=== PATIENT | male | born 1960 | race Caucasian/White ===

== ENCOUNTER → 2023-02-21 | Outpatient (CLI) | payer OTHER, SELFPAY ==
[2023-02-21 17:24] LABS: Absolute Lymphocyte Count 3.83 X10^3/uL (0.83-4.51); Absolute Neutrophil Count 3.5 X10^3/uL (2.0-7.7); Basophil# 0.07 X10^3/uL; Basophil% 0.8 % (0-1); Eosinophil# 0.23 X10^3/uL; Eosinophils% 2.8 % (0-5); Hematocrit 46.1 % (40-54); Hemoglobin 15.8 g/dL (13.0-16.5); Lymphocyte # 3.83 X10^3/ul (0.83-4.51); Lymphocyte % 46.1 % (19-41); Mean Corp Hgb Conc 34.3 g/dL (32-36); Mean Corpuscular Hgb 32.7 pg (27.0-32.0); Mean Corpuscular Volume 95.4 fL (80-94); Mean Platelet Vol. 9.6 fl (6.2-12.0); Monocyte# 0.68 X10^3/uL; Monocyte% 8.2 % (0-10); NRBC Flagged by Analyzer 0 % (0-5); Neutrophil # 3.48 X10^3/uL (2.7-7.7); Neutrophil % 41.9 % (47-70); Platelet Count 216 K/mm3 (150-450); RBC Distribution Width CV 13.4 % (11.6-14.6); Red Blood Count 4.83 M/mm3 (4.6-6.2); White Blood Count 8.3 K/mm3 (4.4-11.0)
[2023-02-21 17:55] LABS: AST(SGOT) 31 U/L (15-37); Alanine Aminotransfer ALT/SGPT 37 U/L (16-61); Albumin, Serum 3.5 g/dL (3.2-5.0); Alkaline Phosphatase 82 U/L (45-117); Anion Gap 4 (5-15); BUN 16 mg/dL (7-18); BUN/Creat Ratio 15.7 RATIO (10-20); Calcium,Total 9.1 mg/dL (8.5-10.1); Chloride 114 mmol/L (98-107); Cholesterol 182 mg/dL (200); Creatinine, Serum 1.02 mg/dL (0.70-1.30); EST Glomerular Filtration Rate 78 mL/min (>60); Est Glom Filt Rate - Afr Amer 94 mL/min (>60); Globulin 3.5 g/dL (2.2-4.2); Glucose 93 mg/dL (74-106); High Density Lipoprotein 65 mg/dL; PSA,Total - Annual Screen 0.82 ng/mL (0.00-4.00); Sodium Level 140 mmol/L (136-145); Triglycerides 71 mg/dL; Uric Acid 8.1 mg/dL (3.5-7.2); Very Low Density Lipoprotein 14 mg/dL (5-40)
== END | disposition home or self-care (01) ==
PROVIDERS: PCP Nurse Practitioner Family; Referring Provider Nurse Practitioner Family; Visit Provider Nurse Practitioner Family
DX: Z00.00 Encounter for general adult medical examination without abnormal findings (principal); I10 Essential (primary) hypertension; Z12.5 Encounter for screening for malignant neoplasm of prostate; M10.9 Gout, unspecified
CPT/HCPCS: 36415; 80053; 80061; 84153; 84550; 85025; G0103

== ENCOUNTER → 2023-03-07 | Outpatient (CLI) | payer OTHER, SELFPAY ==
--- NOTE | 2023-03-07 16:45 | CT_ITS ---
EXAM: CT CHEST, LUNG CANCER SCREENING WITHOUT INTRAVENOUS CONTRAST CLINICAL INDICATION: Lung cancer screening -- and gt;20 pk yr hx;current smoker; asymptomatic TECHNIQUE: Helically acquired images were obtained of the chest without intravenous contrast using low dose (LDCT) lung cancer screening protocol. This CT exam was performed using one or more of the following dose reduction techniques: automated exposure control, adjustment of the mA and/or kV according to patient size, and/or use of iterative reconstruction technique. COMPARISON: No relevant prior studies available. FINDINGS: LUNGS AND PLEURAL SPACES: There is a 4 mm noncalcified nodule in the left lung base seen on series 2 image 190. No pleural effusion or thickening. No pneumothorax. HEART: There are mild coronary artery calcifications. Heart size is normal. No pericardial effusion. MEDIASTINUM: Unremarkable. No mediastinal or hilar adenopathy. Esophagus is unremarkable. No hiatal hernia. THYROID: Unremarkable. No thyroid lesions. BONES/JOINTS: Unremarkable. No suspicious lytic or blastic abnormality. VASCULATURE: See above. LYMPH NODES: Unremarkable. No enlarged lymph nodes. CT/Low Dose CT Lung Screening IMPRESSION: 4 mm noncalcified nodule at the left lung base. There is no acute pulmonary abnormality. Lung-RADS score: 3 - Probably Benign. Recommend low-dose CT (LDCT) in 6 months. Electronically Signed: Mauro Dorantes MD at 18:34 [facility] ,
== END | disposition home or self-care (01) ==
LOC: CT 16:45
PROVIDERS: PCP Nurse Practitioner Family; Referring Provider Nurse Practitioner Family; Visit Provider Nurse Practitioner Family
DX: Z12.2 Encounter for screening for malignant neoplasm of respiratory organs (principal); Z87.891 Personal history of nicotine dependence
CPT/HCPCS: 71271

== ENCOUNTER → 2023-09-26 | Outpatient (CLI) | payer OTHER, SELFPAY ==
--- NOTE | 2023-09-26 16:56 | CT_ITS ---
STUDY: LOW DOSE CT LUNG CANCER SCREENING REASON FOR EXAM: Male, 63 years old. LLL nodule; lung cancer screening -- and gt;20 pk yr hx; current smoker;asymptomatic RADIATION DOSAGE (If Supplied By Facility): CTDIvol = ( 3.02 ) mGy, DLP = ( 98.55 ) mGycm TECHNIQUE: No contrast was administered. Low dose technique was utilized (average mAS-38 and kVp 120). 1.25 mm axial source images with a slice interval of 1.25-mm were reconstructed in lung windows. 2.5 mm axial source images with a slice interval of 2.5-mm were reconstructed in lung windows. 5.0 mm axial source images with a slice interval of 5.0-mm were reconstructed in soft tissue windows. Nodule measured using lung windows on PACS and/or independent workstation with automated measurement of minimum and maximum diameter. Nodule measurement reported as average diameter rounded to the nearest whole number. Growth is defined as an increase ins size of greater than 1.5 mm. COMPARISON: CT lung cancer screening study dated March 07, 2023 FINDINGS: Total lung nodules (excluding granulomas): Stable 4.8 mm nodule measured at its greatest diameter in the lateral base of the left lower lobe, see image 159/236 series 2. This is unchanged from the prior study when measuring the nodule in the same position. No additional nodules are present. No visualized masses or spiculated lesions. Emphysema: Not present Endobronchial lesion: None Aorta: No aneurysmal dilatation Redemonstration of mild diffuse interstitial fibrotic changes of the lungs. No pneumonic consolidation or pleural effusion is present. There is no demonstrated pleural abnormality. Normal heart and pericardium. There are calcifications of the coronary arteries. Normal mediastinum. Normal hilar regions. Normal unenhanced pulmonary arteries. There is atherosclerotic calcification of the aortic arch with tortuosity and elongation of the aortic arch and descending thoracic aorta. There are multi-level degenerative changes of the thoracic spine. There is no demonstrated abnormality of the visualized upper abdomen. CT/Low Dose CT Lung Screening IMPRESSION: 1. Stable 4.8 mm nodule measured at its greatest diameter in the lateral base of the left lower lobe, see image 159/236 series 2. This is unchanged from the prior study when measuring the nodule in the same position. No additional nodules are present. No visualized masses or spiculated lesions. 2. Category 3 nodules that are stable or decreased at 6 months 3. Follow-up to one year to ensure stability. IMPORTANT NOTES FOR USE: ACR Lung-RADS Version 1.0 Assessment Categories Release Date: 2021 Classification system Category 0 (Incomplete)- prior CT studies were performed but are not available, lungs incompletely imaged, findings suggest inflammation or infection Category 1 (negative, <1% chance of malignancy) (no lung nodules/lung nodule(s) with specific findings favoring benign nodule(s)) Category 2 (benign appearance or behavior, <1% chance of malignancy) juxtapleural nodule <10mm mean diameter at baseline OR new and smooth, solid, oval, lentiform, or triangular Category 3 nodules that are stable or decreased at 6 months Category 3 (probably benign, 1-2% chance of malignancy) solid nodule(s)(between 6 and 8 mm at baseline; new nodule between 4 mm and 6 mm) Category 4A lesion, stable or decreased in size at 3-month follow-up (excluding airway nodules) Category 4A (suspicious, 5-15% chance of malignancy) (version 1.1 change previously suspicious) solid nodule(s) (?8 mm to <15 mm at baseline or growing nodule(s) <8 mm) Category 4B (very suspicious, >15% chance of malignancy) stable or growing airway nodule, segmental or more proximal (solid nodule(s) ? 15 mm at baseline or new or growing, and ?8 mm) Category 4X (very suspicious, >15% chance of malignancy) category 3 or 4 nodules with additional features or imaging findings that increase the suspicion of malignancy Modified categories [X]S (e.g. 3S) if there is a clinically significant or potentially significant non-lung cancer finding Electronically Signed: Carlos Nicole MD at 19:13 EDT Reading Location ID and State: [facility] / [place] , Service support ,
== END | disposition home or self-care (01) ==
LOC: CT 16:54
PROVIDERS: PCP Nurse Practitioner Family; Referring Provider Nurse Practitioner Family; Visit Provider Nurse Practitioner Family
DX: Z87.891 Personal history of nicotine dependence (principal); R91.1 Solitary pulmonary nodule; Z12.2 Encounter for screening for malignant neoplasm of respiratory organs
CPT/HCPCS: 71271

== ENCOUNTER → 2024-09-10 | Outpatient (CLI) | payer MEDICARE, SELFPAY ==
--- NOTE | 2024-09-10 11:00 | RAD_ITS ---
PROCEDURE: CHEST PA AND LATERAL 09/10/2024 REASON FOR EXAM: WHEEZING TECHNIQUE: CHEST PA AND LATERAL COMPARISON: [facility] from the chest CT of 09/26/2023. RAD/Chest PA and Lateral IMPRESSION: Lungs appear clear. No pleural effusion or pneumothorax is noted. The cardiomediastinal silhouette is within the normal range. Mild thoracic spine degenerative changes are seen. No acute osseous change is evident. No evidence of acute cardiopulmonary disease. Reading Location: [place] [id number]
[2024-09-10 12:39] LABS: Hematocrit 38.3 % (40-54); Hemoglobin 13.6 g/dL (13.0-16.5); Immature Granulocytes Count 0.030 X10^3/uL (0.0-0.0); Mean Corp Hgb Conc 35.5 g/dL (32-36); Mean Corpuscular Volume 93.0 fL (80-94); Mean Platelet Vol. 8.6 fl (6.2-12.0); NRBC Flagged by Analyzer 0 % (0-5); Platelet Count 256 K/mm3 (150-450); RBC Distribution Width CV 13.1 % (11.6-14.6); RBC Distribution Width SD 44.5 fl (35.1-43.9); Red Blood Count 4.12 M/mm3 (4.6-6.2); White Blood Count 9.2 K/mm3 (4.4-11.0)
[2024-09-10 13:11] LABS: AST(SGOT) 28 U/L (<=37); Alanine Aminotransfer ALT/SGPT 25 U/L (<=46); Albumin, Serum 4.2 g/dL (3.4-4.8); Alkaline Phosphatase 70 U/L (40-129); Anion Gap 12 (5-15); BUN 13 mg/dL (4-19); BUN/Creat Ratio 14.6 RATIO (10-20); CRP 4.51 mg/L (0.0-3.0); Calcium,Total 9.1 mg/dL (7.6-11.0); Carbon Dioxide 21.0 mmol/L (21.0-32.0); Chloride 96 mmol/L (98-108); Cholesterol 140 mg/dL (<=200); Globulin 2.5 g/dL (2.2-4.2); Glucose 134 mg/dL (70-99); Low Density Lipoprotein Calc. 53 mg/dL; PSA,Total - Annual Screen 0.71 ng/mL (0.02-4.00); Potassium 4.2 mmol/L (3.3-5.1); Pro- Brain NATRIURETIC PEPTIDE 348 pg/mL (<=900); Triglycerides 112 mg/dL; Very Low Density Lipoprotein 22 mg/dL (5-40); cholesterol:hdl ratio screen 2.18
--- OUTSIDE RECORDS SUMMARY | 2024-09-10 17:56 | XMS RPT_ITS | CCD ---
Author Organization [facility] Care Team Providers Care Financial Coordinator Name Role Phone Deshawn, Justine Primary Care Unavailable Feliciano Santacruz Attending Unavailable Deshawn, Justine Referring Unavailable Bimal POKER ROOM MANAGER, Margy Referring Unavailable Deshawn, Justine Primary Care Unavailable Bimal POKER ROOM MANAGER, Margy Attending Unavailable Bimal POKER ROOM MANAGER, Margy Referring Unavailable Deshawn, Justine Primary Care Unavailable Bimal POKER ROOM MANAGER, Margy Attending Unavailable Deshawn, Justine Primary Care Unavailable Deshawn, Justine Attending Unavailable Deshawn, Justine Referring Unavailable Feliciano Santacruz Attending Unavailable Deshawn, Justine Primary Care Unavailable Deshawn, Justine Primary Care Unavailable Bimal POKER ROOM MANAGER, Margy Referring Unavailable Bimal POKER ROOM MANAGER, Margy Attending Unavailable Bimal POKER ROOM MANAGER, Margy Attending Unavailable Deshawn, Justine Primary Care Unavailable Bimal POKER ROOM MANAGER, Margy Referring Unavailable Medications Current Medications Medication Drug Class(es) Dates Sig (Normalized) Sig (Original) Kettering (Nk) (1 source) Start: 08-07-2019 Ket[place] (Nk) A ctive August 06, 2019 11:00pm Completed/Discontinued Medications Medication Drug Class(es) Dates Sig (Normalized) Sig (Original) acetaminophen 325 mg / oxyCODONE hydrochloride 5 mg oral tablet (1 source) Opioid Agonist Start: 08-24-2013 End: 07-17-2019 take 1 tablet by mouth every four hours as needed Oxycodone-Acetamino phen Discontinued 1 - 2 TABLET PO EVERY 4 HOURS NEEDED August 23, 2013 11:00pm July 17, 2019 7:20am predniSONE 10 mg oral tablet (2 sources) Start: 07-24-2019 End: 08-07-2019 take 4 tablets by mouth once daily, then take 3 tablets by mouth once daily, then take 2 tablets by mouth once daily, then take 1 tablet by mouth once daily Prednisone Discontinued 10 MG PO DAILY July 23, 2019 11:00pm August 07, 2019 6:25am 4 tablets daily for 3 days, then 3 tablets daily for 3 days, then 2 tablets daily for 3 days, then 1 tablet daily for 3 days Start: 07-17-2019 End: 08-07-2019 take 1 tablet by mouth once daily prednisone 50 mg tablet Discontinued 50 MG PO DAILY July 16, 2019 11:00pm August 07, 2019 6:25am Problems Active Problems Problem Classification Problem Date Documented Da te Episodic/Chronic Allergic reactions (1 source) Irritant contact dermatitis due to solvent; Translations: [Irritant contact dermatitis due to solvents] 07-17-2019 Episodic Other lower respiratory disease (1 source) Solitary pulmonary nodule; Translations: [Solitary pulmonary nodule] Onset: 10-03-2023 Episodic Other screening for suspected conditions (not mental disorders or infectious disease) (1 source) Encounter for screening for malignant neoplasm of respiratory organs; Translations: [Encounter for screening for malignant neoplasm of respiratory organs] Onset: 10-03-2023 Episodic Screening and history of mental health and substance abuse codes (1 source) Personal history of nicotine dependence; Translations: [Personal history of nicotine dependence] Onset: 11-09-2023 Episodic Substance-related disorders (1 source) Nicotine dependence, unspecified, with unspecified nicotine-induced disorders; Translations: [Nicotine dependence, unspecified, with unspecified nicotine-induced disorders] Onset: 10-03-2023 Chronic Past or Other Problems Problem Classification Problem Date Documented Da te Episodic/Chronic Other gastrointestinal disorders (1 source) Other fecal abnormalities; Translations: [Other fecal abnormalities] Onset: 04-05-2023 Episodic Results Test Name Value Interpretation Reference Range Facility Low Dose CT Lung Screeningon 09-26-[address] Lung Screening [facility] Imaging Services [address] [place] [id number] Lung Screening MR#: [id number] Acct: [id number] Name: TI MOTLEY Rep #: [id number] : 1960 M 63 From: Carlos smith MD PCP: ELENITA Viera Status: [facility] CLI Study: Low Dose CT Lung Screening Date of Exam: 09/25 Exam# [id number] Ordering Dr: Margy Wallis NP POKER ROOM MANAGER -C [id number] STUDY: LOW DOSE CT LUNG CANCER SCREENING REASON FOR EXAM: Male, 63 years old. LLL nodule; lung cancer screening -- and gt;20 pk yr hx; current smoker;asymptomatic RADIATION DOSAGE (If Supplied By Facility): CTDIvol = ( 3.02 ) mGy, DLP = ( 98.55 ) mGycm TECHNIQUE: No contrast was administered. Low dose technique was utilized (average mAS-38 and kVp 120). 1.25 mm axial source images with a slice interval of 1.25-mm were reconstructed in lung windows. 2.5 mm axial source images with a slice interval of 2.5-mm were reconstructed in lung windows. 5.0 mm axial source images with a slice interval of 5.0-mm were reconstructed in soft tissue windows. Nodule measured using lung windows on PACS and/or independent workstation with automated measurement of minimum and maximum diameter. Nodule measurement reported as average diameter rounded to the nearest whole number. Growth is defined as an increase ins size of greater than 1.5 mm. COMPARISON: CT lung cancer screening study dated March 07, 2023 FINDINGS: Total lung nodules (excluding granulomas): Stable 4.8 mm nodule measured at its greatest diameter in the lateral base of the left lower lobe, see image 159/236 series 2. This is unchanged from the prior study when measuring the nodule in the same position. No additional nodules are present. No visualized masses or spiculated lesions. Emphysema: Not present Endobronchial lesion: None Aorta: No aneurysmal dilatation Redemonstration of mild diffuse interstitial fibrotic changes of the lungs. No pneumonic consolidation or pleural effusion is present. There is no demonstrated pleural abnormality. Normal heart and pericardium. There are calcifications of the coronary arteries. Normal mediastinum. Normal hilar regions. Normal unenhanced pulmonary arteries. There is atherosclerotic calcification of the aortic arch with tortuosity and elongation of the aortic arch and descending thoracic aorta. There are multi-level degenerative changes of the thoracic spine. There is no demonstrated abnormality of the visualized upper abdomen. CT/Low Dose CT Lung Screening IMPRESSION: 1. Stable 4.8 mm nodule measured at its greatest diameter in the lateral base of the left lower lobe, see image 159/236 series 2. This is unchanged from the prior study when measuring the nodule in the same position. No additional nodules are present. No visualized masses or spiculated lesions. 2. Category 3 nodules that are stable or decreased at 6 months 3. Follow-up to one year to ensure stability. IMPORTANT NOTES FOR USE: ACR Lung-RADS Version 1.0 Assessment Categories Release Date: 2021 Classification system Category 0 (Incomplete)- prior CT studies were performed but are not available, lungs incompletely imaged, findings suggest inflammation or infection Category 1 (negative, <1% chance of malignancy) (no lung nodules/lung nodule(s) with specific findings favoring benign nodule(s)) Category 2 (benign appearance or behavior, <1% chance of malignancy) juxtapleural nodule <10mm mean diameter at baseline OR new and smooth, solid, oval, lentiform, or triangular Category 3 nodules that are stable or decreased at 6 months Category 3 (probably benign, 1-2% chance of malignancy) solid nodule(s)(between 6 and 8 mm at baseline; new nodule between 4 mm and 6 mm) Category 4A lesion, stable or decreased in size at 3-month follow-up (excluding airway nodules) Category 4A (suspicious, 5-15% chance of malignancy) (version 1.1 change previously suspicious) solid nodule(s) (?8 mm to <15 mm at baseline or growing nodule(s) <8 mm) Category 4B (very suspicious, >15% chance of malignancy) stable or growing airway nodule, segmental or more proximal (solid nodule(s) ? 15 mm at baseline or new or growing, and ?8 mm) Category 4X (very suspicious, >15% chance of malignancy) category 3 or 4 nodules with additional features or imaging findings that increase the suspicion of malignancy Modified categories [X]S (e.g. 3S) if there is a clinically significant or potentially significant non-lung cancer finding Electronically Signed: Carlos Nicole MD at 19:13 EDT , CC (more content not included)... Normal [facility] Oncology Visit Reporton 09-07 Oncology Visit Report [facility] [place] [address] OFFICE VISIT Date of Service: 09/26/23 1624 MR#: [id number] Acct: [id number] Name: TI MOTLEY Rep #: [id number] : 1960 From: Margy Wallis NP POKER ROOM MANAGER -C Age/Sex: 63/M Location: [facility] Status: Signed HPI HPI Reviewed eligibility criteria: 63 year old M with a >20 pk year history (1/2 ppd x 43 years) Smoking Status: Current every day smoker (1/2 ppd) Decision Making Engaged in shared decision making visit utilizing a visual aid. Discussed the risks and benefits of lung cancer screening including the total radiation exposure, false positive rate, over diagnosis and potential need for follow-up diagnostic testing all associated with low-dose chest CT. Comorbidities hypertension ROS Const Denies anorexia, Denies fatigue, Denies headache(s), Denies poor appetite and Denies weight loss ENT Denies headache(s) Card Denies chest pain, Denies dyspnea and Denies palpitations Resp Denies cough, Denies dyspnea, Denies hemoptysis and Denies wheezing GI Reports system reviewed and no additional complaints, except as documented Reports system reviewed and no additional complaints, except as documented Musc Reports system reviewed and no additional complaints, except as documented Skin/Breast Reports system reviewed and no additional complaints, except as documented Neuro Yes system reviewed and no additional complaints, except as documented and No headache(s) Psych Reports system reviewed and no additional complaints, except as documented Endo Reports system reviewed and no additional complaints, except as documented, Denies fatigue and Denies palpitations Dimitri/Lymph Reports system reviewed and no additional complaints, except as documented Aller/Immun Denies wheezing Exam Const General: not in acute distress Orientation: oriented x3 HENMT Head: normocephalic and atraumatic Neck Neck: trachea midline, supple and no lymphadenopathy noted Resp Effort Inspection: normal respiratory effort and symmetric chest movement Auscultation: Bilateral: Diminished Lung Sounds Cardio Rate: regular rate Rhythm: regular rhythm Heart Sounds: S1 normal and S2 normal Psych Affect: normal affect Speech and Movement: speech and movement normal Results Results September 26, [address] Lung Screening COMPARISON: CT lung cancer screening study dated March 07, 2023 FINDINGS: Total lung nodules (excluding granulomas): Stable 4.8 mm nodule measured at its greatest diameter in the lateral base of the left lower lobe, see image 159/236 series 2. This is unchanged from the prior study when measuring the nodule in the same position. No additional nodules are present. No visualized masses or spiculated lesions. Emphysema: Not present Endobronchial lesion: None Aorta: No aneurysmal dilatation Redemonstration of mild diffuse interstitial fibrotic changes of the lungs. No pneumonic consolidation or pleural effusion is present. There is no demonstrated pleural abnormality. Normal heart and pericardium. There are calcifications of the coronary arteries. Normal mediastinum. Normal hilar regions. Normal unenhanced pulmonary arteries. There is atherosclerotic calcification of the aortic arch with tortuosity and elongation of the aortic arch and descending thoracic aorta. There are multi-level degenerative changes of the thoracic spine. There is no demonstrated abnormality of the visualized upper abdomen. IMPRESSION: 1. Stable 4.8 mm nodule measured at its greatest diameter in the lateral base of the left lower lobe, see image 159/236 series 2. This is unchanged from the prior study when measuring the nodule in the same position. No additional nodules are present. No visualized masses or spiculated lesions. 2. Category 3 nodules that are stable or decreased at 6 months 3. Follow-up to one year to ensure stability. Intake Vital Signs 04/04/23 14:56 09/26/23 16:31 Height 5 ft 8 in 5 ft 8 in Weight: 179 lb 179 lb 9 oz BMI 27.2 27.3 BP 142/85 H 157/89 H Blood Pressure Location Rt brachial Lt brachial Position Sitting Sitting Respiration 17 18 Pulse 80 80 Pulse Source Monitor Monitor Temp 99.5 F H Temp Source Temporal Pulse Oximetry (%) 97 97 Oxygen Delivery Method room air room air Intake Visit Reasons: Lung Cancer Screening Is patient in pain?: No Allergies No Known Allergies Allergy (Verified 09/26/23 16:27) Medications ???Medication ???Instructions ???Recorded ???Confirmed ???Type allopurinol 100 mg tablet 100 mg PO DAILY 04/04/23 09/26/23 History lisinopril 20 1 tab PO DAILY 04/04/23 09/26/23 History mg-hydrochlorothiazid e 25 mg tablet Have you fallen in the past year?: No PFSH M (more content not included)... Normal [facility] Surgery Visit Reporton 04-04 Surgery Visit Report [facility] [address] [place] [address] OFFICE VISIT Date of Service: 04/04/23 MR#: [id number] Acct: [id number] Name: TI MOTLEY Rep #: [id number] : 1960 Provider: Dr. Feliciano muro MD Age/Sex: 62/M Location: [facility] Status: Signed Intake Vital Signs 03/07/23 16:11 04/04/23 14:56 Height 5 ft 8 in 5 ft 8 in Weight: 183 lb 179 lb BMI 27.8 27.2 BP 167/90 H 142/85 H Blood Pressure Location Lt brachial Rt brachial Position Sitting Sitting Respiration 18 17 Pulse 80 80 Pulse Source Monitor Monitor Temp 98.0 F Temp Source Temporal Pulse Oximetry (%) 98 97 Oxygen Delivery Method room air room air Intake Visit Reasons: POSITIVE COLOGUARD Chief Complaint: positive cologuard Is patient in pain?: No Allergies No Known Allergies Allergy (Verified 04/04/23 14:58) Medications allopurinol 100 mg tablet 100 mg PO DAILY 04/04/23 [History Confirmed 04/04/23] lisinopril 20 mg-hydrochlorothiazid e 25 mg tablet 1 tab PO DAILY 04/04/23 [History Confirmed 04/04/23] PFSH Medical History (Updated 04/04/23 @ 14:54 by Ayah Rossi) Encounter for screening for malignant neoplasm of lung Gout HTN (hypertension) Lung nodule Tobacco use disorder, continuous Surgical History (Updated 04/04/23 @ 14:56 by Ayah Rossi) H/O arthroscopy of left knee Family History Father Cancer lung Diabetes Mother Diabetes Social History Smoking Status: Current every day smoker (1/2 ppd) Tobacco: How many years used: 40 alcohol intake: never HPI HPI HPI: Patient is a 62-year-old male here with positive Cologuard. Patient has never had a colonoscopy in the past. He denies any abdominal pain or blood in stool. He has no family history of colon cancer. ROS General General: No weight change, appetite, fatigue, colon cancer, breast cancer or weakness HEENT HEENT: No difficulty swallowing, eye injury, eye surgery, swollen glands or hoarseness Endo Endocrine: No thyroid disease, diabetes mellitus, thyroid cancer, Hair loss, heat intolerance or cold intolerance Skin Skin: No rash or changing moles Musc Musculoskeletal: Yes gout; No back problems, arthritis, rheumatoid arthritis or joint pain Cardio Cardiovascular: Yes high blood pressure; No murmur, pacemaker, heart disease, atrial fibrillation, heart attack, heart stent, palpitations, shortness of breat with exertion or chest pain Psych Psychiatric: No depression, anxiety or hearing voices Resp Respiratory: No shortness of breath, No sleep apnea, No cough, No COPD, No asthma, No emphysema and No wheezing Gastro Gastrointestinal: No abdominal pain, No nausea or vomiting, No diarrhea, No constipation, No blood in stool, No acid reflux, No hemorrhoids, No ulcers, No gallbladder problem and No black,tarry stools Dimitri Hematologic: No blood thinners, No blood disorders, No bleeding, No anemia and No blood clots Neuro Neurologic: No system reviewed and no additional complaints, except as documented, No as per HPI, No abnormal gait, No abnormal hearing, No abnormal movements, No abnormal speech, No behavioral changes, No burning sensations, No confusion, No convulsions, No disequilibrium, No dizziness, No localized weakness, No frequent falls, No headache(s), No lack of coordination, No loss of vision, No memory loss, No numbness, No other visual disturbances, No radicular pain, No restless legs, No sensory deficit, No syncope, No tingling, No tremor(s), No weakness and No other Exam Const General: cooperative Orientation: alert and oriented x3 HENMT Head: normal to inspection Neck Neck: normal visual inspection and full ROM Chest Chest palpation inspection: normal inspection of the chest Resp Effort Inspection: normal respiratory effort Auscultation: clear to auscultation bilaterally Cardio Rate: regular rate Rhythm: regular rhythm GI Inspection: non-distended Palpation: soft and nontender Skin General: no rashes or lesions noted Neuro General: patient alert and patient oriented x3 Extrem General: full ROM Psych Appearance: grossly normal Mental Status: mental status grossly normal Assessment and Plan Assessment and Plan (1) Positive colorectal cancer screening using Cologuard test: Status: Acute Plan: I explained endoscopy in detail to the patient. I explained the risks including but not limited to stroke or heart attack with anesthesia, perforation of the GI tract, bleeding, infection. I explained that any of these could necessitate further emergency surgery. The patient understands and all questions were answered sufficiently. The patient wishes to proceed with proced (more content not included)... Normal [facility] Low Dose CT Lung Screeningon 03-07-[address] Lung Screening [facility] Imaging Services [address] [place] [address] Lung Screening MR#: [id number] Acct: [id number] Name: TI MOTLEY Rep #: [id number] : 1960 M 62 From: Mauro Dorantes MD PCP: ELENITA Viera Status: [facility] Study: Low Dose CT Lung Screening Date of Exam: 03/07 Exam# [id number] Ordering Dr: Margy Wallis NP POKER ROOM MANAGER -C [id number] EXAM: CT CHEST, LUNG CANCER SCREENING WITHOUT INTRAVENOUS CONTRAST CLINICAL INDICATION: Lung cancer screening -- and gt;20 pk yr hx;current smoker; asymptomatic TECHNIQUE: Helically acquired images were obtained of the chest without intravenous contrast using low dose (LDCT) lung cancer screening protocol. This CT exam was performed using one or more of the following dose reduction techniques: automated exposure control, adjustment of the mA and/or kV according to patient size, and/or use of iterative reconstruction technique. COMPARISON: No relevant prior studies available. FINDINGS: LUNGS AND PLEURAL SPACES: There is a 4 mm noncalcified nodule in the left lung base seen on series 2 image 190. No pleural effusion or thickening. No pneumothorax. HEART: There are mild coronary artery calcifications. Heart size is normal. No pericardial effusion. MEDIASTINUM: Unremarkable. No mediastinal or hilar adenopathy. Esophagus is unremarkable. No hiatal hernia. THYROID: Unremarkable. No thyroid lesions. BONES/JOINTS: Unremarkable. No suspicious lytic or blastic abnormality. VASCULATURE: See above. LYMPH NODES: Unremarkable. No enlarged lymph nodes. CT/Low Dose CT Lung Screening IMPRESSION: 4 mm noncalcified nodule at the left lung base. There is no acute pulmonary abnormality. Lung-RADS score: 3 - Probably Benign. Recommend low-dose CT (LDCT) in 6 months. Electronically Signed: Mauro Dorantes MD at 18:34 EST , CC: ELENITA Hess; ELENITA Wallis Utility Division Project Manager: Signed Normal [facility] Oncology Visit Reporton 02-08 Oncology Visit Report [facility] [address] [place] [address] OFFICE VISIT Date of Service: 03/07/23 1608 MR#: [id number] Acct: [id number] Name: TI MOTLEY Rep #: [id number] : 1960 From: Margy Bhatia Age/Sex: 62/M Location: [facility] [place] Status: Signed [facility] HPI Reviewed eligibility criteria: 62 year old M with a >20 pack year smoking history (1/2 ppd x 42 years) Smoking Status: Current every day smoker (1/2 ppd) Decision Making Engaged in shared decision making visit utilizing a visual aid. Discussed the risks and benefits of lung cancer screening including the total radiation exposure, false positive rate, over diagnosis and potential need for follow-up diagnostic testing all associated with low-dose chest CT. ROS Const Denies anorexia, Denies fatigue, Denies headache(s), Denies poor appetite and Denies weight loss ENT Denies headache(s) Card Denies chest pain, Denies dyspnea and Denies palpitations Resp Denies cough, Denies dyspnea, Denies hemoptysis and Denies wheezing GI Reports system reviewed and no additional complaints, except as documented Reports system reviewed and no additional complaints, except as documented Musc Reports system reviewed and no additional complaints, except as documented Skin/Breast Reports system reviewed and no additional complaints, except as documented Neuro Yes system reviewed and no additional complaints, except as documented and No headache(s) Psych Reports system reviewed and no additional complaints, except as documented Endo Reports system reviewed and no additional complaints, except as documented, Denies fatigue and Denies palpitations Dimitri/Lymph Reports system reviewed and no additional complaints, except as documented Aller/Immun Denies wheezing Exam Const General: not in acute distress Orientation: oriented x3 [facility] Head: normocephalic and atraumatic Neck Neck: trachea midline, supple and no lymphadenopathy noted Resp Effort Inspection: normal respiratory effort and symmetric chest movement Auscultation: Bilateral: Diminished Lung Sounds Cardio Rate: regular rate Rhythm: regular rhythm Heart Sounds: S1 normal and S2 normal Psych Affect: normal affect Speech and Movement: speech and movement normal Results Results 03/07/[address] Lung Screening COMPARISON: No relevant prior studies available. FINDINGS: LUNGS AND PLEURAL SPACES: There is a 4 mm noncalcified nodule in the left lung base seen on series 2 image 190. No pleural effusion or thickening. No pneumothorax. HEART: There are mild coronary artery calcifications. Heart size is normal. No pericardial effusion. MEDIASTINUM: Unremarkable. No mediastinal or hilar adenopathy. Esophagus is unremarkable. No hiatal hernia. THYROID: Unremarkable. No thyroid lesions. BONES/JOINTS: Unremarkable. No suspicious lytic or blastic abnormality. VASCULATURE: See above. LYMPH NODES: Unremarkable. No enlarged lymph nodes. IMPRESSION: 4 mm noncalcified nodule at the left lung base. There is no acute pulmonary abnormality. Lung-RADS score: 3 - Probably Benign. Recommend low-dose CT (LDCT) in 6 months. Intake Vital Signs 07/17/19 08:19 03/07/23 16:11 Height 5 ft 8 in 5 ft 8 in Weight: 183 lb BMI 27.8 BP 167/90 H Blood Pressure Location Lt brachial Position Sitting Respiration 18 Pulse 80 Pulse Source Monitor Temp 98.0 F Temp Source Temporal Pulse Oximetry (%) 98 Oxygen Delivery Method room air Intake Visit Reasons: Lung Cancer Screening Is patient in pain?: No Allergies No Known Allergies Allergy (Verified 03/07/23 16:11) [facility] Medical History (Updated 03/09/23 @ 10:09 by Margy Wallis POKER ROOM MANAGER, POKER ROOM MANAGER-C) Encounter for screening for malignant neoplasm of lung Gout HTN (hypertension) Lung nodule Tobacco use disorder, continuous Family History (Updated 03/07/23 @ 16:13 by Evelin Hilton) Father Cancer lung Diabetes Mother Diabetes Social History (Updated 03/07/23 @ 16:12 by Evelin Hilton) Smoking Status: Current every day smoker (1/2 ppd) Tobacco: How many years used: 40 alcohol intake: never Assessment and Plan (No Qualifiers) Assessment and Plan (1) Encounter for screening for malignant neoplasm of lung: Status: Acute Plan: 1. Per LUNG RADS 3 a LDCT chest scan is recommended in 6 months. Tentatively scheduled for September 12, 2023. Patient was made aware images are subject to multidisciplinary review and if alternate recommendations for screening are advised, he will be contacted via phone. 2. Other findings: coronary artery calcifications. Advised routine follow up wth his pcp. (2) Tobacco use disorder, continuous: Status: Acute Plan: A 12 minute, face to face discussion occurred with the (more content not included)... Normal [facility] Absolute lymphocyte countOrd ered By: Justine Hess on 02-21-2023 Lymphocytes Auto (Unsp spec) [#/Vol] 3.83 10*3/uL 0.83-4.51 [facility] Automated lymphocyte count a s percentage of total leukocytesOrdered By: Justine Hess on 02-21-2023 Lymphocytes/100 WBC Auto (Unsp spec) 46.1 % 19-41 [facility] Basophil percentageOrdered B y: Justine Hess on 02-21-2023 Basophils/100 WBC (Bld) 0.8 % 0-1 [facility] Bilirubin [Mass/Vol] 0.90 mg/dL 0.20-1.00 [facility] Comment on above: For patients on eltr ombopag therapy, use of Dimension Rison TBIL is not recommended. Chloride [Moles/Vol] 114 mmol/L 98-107 [facility] Cholesterol [Mass/Vol] 182 mg/dL <200 [facility] Comment on above: <200 mg/dL Desirable 200-240 mg/dL Borderline >240 mg/dL High Risk Eosinophils/100 WBC (Bld) 2.8 % 0-5 [facility] Glucose [Mass/Vol] 93 mg/dL 74-106 [facility] Hemoglobin (Bld) [Mass/Vol] 15.8 g/dL 13.0-16.5 [facility] Monocytes/100 WBC (Bld) 8.2 % 0-10 [facility] Neutrophils (Bld) [#/Vol] 3.5 10*3/uL 2.0-7.7 [facility] Neutrophils/100 WBC (Bld) 41.9 % 47-70 [facility] Potassium [Moles/Vol] 4.0 mmol/L 3.5-5.1 [facility] Protein [Mass/Vol] 7.0 g/dL 6.4-8.2 [facility] Sodium [Moles/Vol] 140 mmol/L 136-145 [facility] Triglyceride [Mass/Vol] 71 mg/dL <199 [facility] Comment on above: The drugs N-Acetylcy steine and Metamizole may falsely depress this assay.Serum Triglycerides Reference Interval Normal <150 mg/dL Borderline high 150 - 199 mg/dL High 200 - 499 mg/dL Very High > or = 500 mg/dL WBC (Bld) [#/Vol] 8.3 10*3/uL 4.4-11.0 [facility] CBC W/Diff, Automatedon 02-06 Absolute Lymph 3.83 X10 3/uL Normal 0.83-4.51 [facility] Comment on above: Performed By: #### L 100.0100, L501.1400, L501.9910, L500.4100, L500.4050 #### [facility] [address] [place], [address] Absolute Neut 3.5 X10 3/uL Normal 2.0-7.7 [facility] Comment on above: Performed By: #### L 100.0100, L501.1400, L501.9910, L500.4100, L500.4050 #### [facility] [address] [place], [address] Basophils/100 WBC (Bld) 0.8 % Normal 0-1 [facility] Comment on above: Performed By: #### L 100.0100, L501.1400, L501.9910, L500.4100, L500.4050 #### [facility] [address] [place], [address] Eosinophils/100 WBC (Bld) 2.8 % Normal 0-5 [facility] Comment on above: Performed By: #### L 100.0100, L501.1400, L501.9910, L500.4100, L500.4050 #### [facility] [address] [place], [address] Erythrocyte distribution width (RBC) [Ratio] 13.4 % Normal 11.6-14.6 [facility] Comment on above: Performed By: #### L 100.0100, L501.1400, L501.9910, L500.4100, L500.4050 #### [facility] [address] [place], [address] Hematocrit (Bld) [Volume fraction] 46.1 % Normal 40-54 [facility] Comment on above: Performed By: #### L 100.0100, L501.1400, L501.9910, L500.4100, L500.4050 #### [facility] [address] [place], [address] Hemoglobin (Bld) [Mass/Vol] 15.8 g/dL Normal 13.0-16.5 [facility] Comment on above: Performed By: #### L 100.0100, L501.1400, L501.9910, L500.4100, L500.4050 #### [facility] [address] [place], [address] IG% 0.200 Normal 0.0-0.9 [facility] Comment on above: Result Comment: IG% - Immature Granulocytes (promyelocytes, myelocytes and metamyelocytes) > 1% indicates that a LEFT SHIFT is Present. Performed By: #### L 100.0100, L501.1400, L501.9910, L500.4100, L500.4050 #### [facility] [address] [place], [address] Lymphocytes/100 WBC (Bld) 46.1 % High 19-41 [facility] Comment on above: Performed By: #### L 100.0100, L501.1400, L501.9910, L500.4100, L500.4050 #### [facility] [address] [place], [address] MCH (RBC) [Entitic mass] 32.7 pg High 27.0-32.0 [facility] Comment on above: Performed By: #### L 100.0100, L501.1400, L501.9910, L500.4100, L500.4050 #### [facility] [address] [place], [address] MCHC (RBC) [Mass/Vol] 34.3 g/dL Normal 32-36 [facility] Comment on above: Performed By: #### L 100.0100, L501.1400, L501.9910, L500.4100, L500.4050 #### [facility] [address] [place], [address] MCV (RBC) [Entitic vol] 95.4 fL High 80-94 [facility] Comment on above: Performed By: #### L 100.0100, L501.1400, L501.9910, L500.4100, L500.4050 #### [facility] [address] [place], [address] Monocytes/100 WBC (Bld) 8.2 % Normal 0-10 [facility] Comment on above: Performed By: #### L 100.0100, L501.1400, L501.9910, L500.4100, L500.4050 #### [facility] [address] [place], [address] Neutrophils/100 WBC (Bld) 41.9 % Low 47-70 [facility] Comment on above: Performed By: #### L 100.0100, L501.1400, L501.9910, L500.4100, L500.4050 #### [facility] [address] [place], [address] Nucleated RBC (Bld) [#/Vol] 0 10*3/uL Normal 0-5 [facility] Comment on above: Performed By: #### L 100.0100, L501.1400, L501.9910, L500.4100, L500.4050 #### [facility] [address] [place], [address] Platelet mean volume (Bld) [Entitic vol] 9.6 fL Normal 6.2-12.0 [facility] Comment on above: Performed By: #### L 100.0100, L501.1400, L501.9910, L500.4100, L500.4050 #### [facility] [address] [place], [address] Platelets (Bld) [#/Vol] 216 10*3/uL Normal 150-450 [facility] Comment on above: Performed By: #### L 100.0100, L501.1400, L501.9910, L500.4100, L500.4050 #### [facility] [address] [place], [address] RBC (Bld) [#/Vol] 4.83 10*6/uL Normal 4.6-6.2 [facility] Comment on above: Performed By: #### L 100.0100, L501.1400, L501.9910, L500.4100, L500.4050 #### [facility] [address] [place], [address] RDW SD 47.0 fl High 35.1-43.9 [facility] Comment on above: Performed By: #### L 100.0100, L501.1400, L501.9910, L500.4100, L500.4050 #### [facility] [address] [place], [address] WBC (Bld) [#/Vol] 8.3 10*3/uL Normal 4.4-11.0 [facility] Comment on above: Performed By: #### L 100.0100, L501.1400, L501.9910, L500.4100, L500.4050 #### [facility] [address] [place], [address] Comprehensive Metabolic Prof ilon 02-21-2023 Albumin [Mass/Vol] 3.5 g/dL Normal 3.2-5.0 [facility] Comment on above: Performed By: #### L 100.0100, L501.1400, L501.9910, L500.4100, L500.4050 #### [facility] [address] [place], [address] Albumin/Globulin [Mass ratio] 1.0 {ratio} Normal 0.9-2.4 [facility] Comment on above: Performed By: #### L 100.0100, L501.1400, L501.9910, L500.4100, L500.4050 #### [facility] [address] [place], [address] ALK P 82 U/L Normal 45-117 [facility] Comment on above: Performed By: #### L 100.0100, L501.1400, L501.9910, L500.4100, L500.4050 #### [facility] [address] [place], [address] ALT [Catalytic activity/Vol] 37 U/L Normal 16-61 [facility] Comment on above: Performed By: #### L 100.0100, L501.1400, L501.9910, L500.4100, L500.4050 #### [facility] [address] [place], [address] AST [Catalytic activity/Vol] 31 U/L Normal 15-37 [facility] Comment on above: Performed By: #### L 100.0100, L501.1400, L501.9910, L500.4100, L500.4050 #### [facility] [address] [place], [address] Bilirubin [Mass/Vol] 0.90 mg/dL Normal 0.20-1.00 [facility] Comment on above: Result Comment: For patients on eltrombopag therapy, use of Dimension Rison TBIL is not recommended. Performed By: #### L 100.0100, L501.1400, L501.9910, L500.4100, L500.4050 #### [facility] [address] [place], [address] BUN/CRE 15.7 RATIO Normal 10-20 [facility] Comment on above: Performed By: #### L 100.0100, L501.1400, L501.9910, L500.4100, L500.4050 #### [facility] [address] [place], [address] CA,Total 9.1 mg/dL Normal 8.5-10.1 [facility] Comment on above: Performed By: #### L 100.0100, L501.1400, L501.9910, L500.4100, L500.4050 #### [facility] [address] [place], [address] Chloride [Moles/Vol] 114 mmol/L High 98-107 [facility] Comment on above: Performed By: #### L 100.0100, L501.1400, L501.9910, L500.4100, L500.4050 #### [facility] [address] [place], [address] CO2 [Moles/Vol] 22.0 mmol/L Normal 21.0-32.0 [facility] Comment on above: Performed By: #### L 100.0100, L501.1400, L501.9910, L500.4100, L500.4050 #### [facility] [address] [place], [address] Creatinine [Mass/Vol] 1.02 mg/dL Normal 0.70-1.30 [facility] Comment on above: Result Comment: The validity of the calculated GFR GFRAA in patients over 70 years has not been determined. Clinical correlation is essential. Performed By: #### L 100.0100, L501.1400, L501.9910, L500.4100, L500.4050 #### [facility] [address] [place], [address] EST GFR - AA 94 mL/min Normal >60 [facility] Comment on above: Result Comment: Afri can Barbadian GFR Calc Performed By: #### L 100.0100, L501.1400, L501.9910, L500.4100, L500.4050 #### [facility] [address] [place], [address] GAP 4 Low 5-15 [facility] Comment on above: Performed By: #### L 100.0100, L501.1400, L501.9910, L500.4100, L500.4050 #### [facility] [address] [place], [address] GFR/1.73 sq M.predicted among non-blacks MDRD (S/P/Bld) [Vol rate/Area] 78 mL/min/{1.73_m2} Normal >60 [facility] Comment on above: Result Comment: Non- GFR Calc Performed By: #### L 100.0100, L501.1400, L501.9910, L500.4100, L500.4050 #### [facility] [address] [place], [address] Globulin (S) [Mass/Vol] 3.5 g/dL Normal 2.2-4.2 [facility] Comment on above: Performed By: #### L 100.0100, L501.1400, L501.9910, L500.4100, L500.4050 #### [facility] [address] [place], [address] Glucose [Mass/Vol] 93 mg/dL Normal 74-106 [facility] Comment on above: Performed By: #### L 100.0100, L501.1400, L501.9910, L500.4100, L500.4050 #### [facility] [address] [place], [address] Potassium [Moles/Vol] 4.0 mmol/L Normal 3.5-5.1 [facility] Comment on above: Performed By: #### L 100.0100, L501.1400, L501.9910, L500.4100, L500.4050 #### [facility] [address] [place], [address] Sodium [Moles/Vol] 140 mmol/L Normal 136-145 [facility] Comment on above: Performed By: #### L 100.0100, L501.1400, L501.9910, L500.4100, L500.4050 #### [facility] [address] [place], [address] T PROT 7.0 g/dL Normal 6.4-8.2 [facility] Comment on above: Performed By: #### L 100.0100, L501.1400, L501.9910, L500.4100, L500.4050 #### [facility] [address] [place], [address] Urea nitrogen [Mass/Vol] 16 mg/dL Normal 7-18 [facility] Comment on above: Performed By: #### L 100.0100, L501.1400, L501.9910, L500.4100, L500.4050 #### [facility] [address] [place], [address] Determination of erythrocyte mean corpuscular volume (MCV)Ordered By: Justine Hess on 02-21-2023 MCV (RBC) [Entitic vol] 95.4 fL 80-94 [facility] Erythrocyte distribution wid th ratioOrdered By: Justineneno Hess on 02-21-2023 Erythrocyte distribution width (RBC) [Ratio] 13.4 % 11.6-14.6 [facility] Erythrocyte distribution wid th standard deviationOrdered By: Justineneno Hess on 02-21-2023 Erythrocyte distribution width (RBC) [Entitic vol] 47.0 fL 35.1-43.9 [facility] Hematocrit Auto (Bld) [Volum e fraction]Ordered By: Justine Hess on 02-21-2023 Hematocrit (Bld) [Volume fraction] 46.1 % 40-54 [facility] High density lipoprotein (HD L) measurementOrdered By: Justine Hess on 02-21-2023 Cholesterol in HDL (Body fld) [Mass/Vol] 65 mg/dL >40 [facility] Comment on above: The drugs N-Acetylcy steine and Metamizole may falsely depress this assay. Reference Range HDL <40 mg/dL Low HDL Cholesterol HDL >or= 60 mg/dL High HDL Cholesterol Immature granulocytes/100 WB C Auto (Bld)Ordered By: Justine Hess on 02-21-2023 Immature granulocytes/100 WBC (Bld) 0.200 % 0.0-0.9 [facility] Comment on above: IG% - Immature Granu locytes (promyelocytes, myelocytes and metamyelocytes) > 1% indicates that a LEFT SHIFT is Present. Laboratory - Chemistry and C hemistry - challengeOrdered By: Justine Hess on 02-21-2023 Albumin/Globulin [Mass ratio] 1.0 {ratio} 0.9-2.4 [facility] ALP [Catalytic activity/Vol] 82 U/L 45-117 [facility] ALT [Catalytic activity/Vol] 37 U/L 16-61 [facility] CO2 [Moles/Vol] 22.0 mmol/L 21.0-32.0 [facility] Globulin (S) [Mass/Vol] 3.5 g/dL 2.2-4.2 [facility] Urea nitrogen/Creatinine [Mass ratio] 15.7 mg/mg 10-20 [facility] - Hematology and Cell countsOrdered By: Justine Hess on 02-21-2023 MCH (RBC) [Entitic mass] 32.7 pg 27.0-32.0 [facility] MCHC (RBC) [Mass/Vol] 34.3 g/dL 32-36 [facility] Nucleated RBC/100 WBC (Bld) [Ratio] 0 % 0-5 [facility] Platelets (Bld) [#/Vol] 216 10*3/uL 150-450 [facility] Lipid Profileon 02-21-2023 Cholesterol [Mass/Vol] 182 mg/dL Normal 200 [facility] Comment on above: Result Comment: <200 mg/dL Desirable 200-240 mg/dL Borderline >240 mg/dL High Risk Performed By: #### L 100.0100, L501.1400, L501.9910, L500.4100, L500.4050 #### [facility] [address] [place], [address] Cholesterol in HDL [Mass/Vol] 65 mg/dL Normal [facility] Comment on above: Result Comment: The drugs N-Acetylcysteine and Metamizole may falsely depress this assay. Reference Range HDL <40 mg/dL Low HDL Cholesterol HDL >or= 60 mg/dL High HDL Cholesterol Performed By: #### L 100.0100, L501.1400, L501.9910, L500.4100, L500.4050 #### [facility] [address] [place], [address] Cholesterol in LDL [Mass/Vol] 103 mg/dL Normal 0-130 [facility] Comment on above: Performed By: #### L 100.0100, L501.1400, L501.9910, L500.4100, L500.4050 #### [facility] [address] [place], [address] Cholesterol in VLDL [Mass/Vol] 14 mg/dL Normal 5-40 [facility] Comment on above: Performed By: #### L 100.0100, L501.1400, L501.9910, L500.4100, L500.4050 #### [facility] [address] [place], [address] Triglyceride [Mass/Vol] 71 mg/dL Normal [facility] Comment on above: Result Comment: The drugs N-Acetylcysteine and Metamizole may falsely depress this assay. Serum Triglycerides Reference Interval Normal <150 mg/dL Borderline high 150 - 199 mg/dL High 200 - 499 mg/dL Very High > or = 500 mg/dL Performed By: #### L 100.0100, L501.1400, L501.9910, L500.4100, L500.4050 #### [facility] [address] [place], [address] Low density lipoprotein (LDL ) cholesterol measurementOrdered By: Justine Hess on 02-21-2023 Cholesterol in LDL (Body fld) [Moles/Vol] 103 mg/dL 0-130 [facility] No Panel InformationOrdered By: Justine Hess on 02-21-2023 Estimated GFR (MDRD) Amer 94 mL/min >60 [facility] Comment on above: GFR Calc Estimated GFR (MDRD) Non-Af Amer 78 mL/min >60 [facility] Comment on above: Non- GFR Calc PSA,Total - Annual Screenon 02-21-2023 PSA,TOT SCREEN 0.82 ng/mL Normal 0.00-4.00 [facility] Comment on above: Result Comment: This test was performed using the TPSA assay method for the Dimension chemistry system. Values obtained with different assay methods cannot be used interchangably. When changing PSA assays in the course of monitoring a patient, additional sequential testing should be carried out to confirm baseline values. Performed By: #### L 100.0100, L501.1400, L501.9910, L500.4100, L500.4050 #### [facility] [address] [place], [address] Platelet mean volume Brian-Ec ker (Bld) [Entitic vol]Ordered By: Justine Hess on 02-21-2023 Platelet mean volume (Bld) [Entitic vol] 9.6 fL 6.2-12.0 [facility] RBC Auto (Bld) [#/Vol]Ordere d By: Justine Hess on 02-21-2023 RBC (Bld) [#/Vol] 4.83 10*6/uL 4.6-6.2 [facility] Screening prostate specific antigen (PSA) measurementOrdered By: Justine Hess on 02-21-2023 Prostate specific Ag IA [Mass/Vol] 0.82 ng/mL 0.00-4.00 [facility] Comment on above: This test was perfor med using the TPSA assay method for [employer] chemistry system. Values obtained with differentassay methods cannot be used interchangably.When changing PSA assays in the course of monitoring apatient, additional sequential testing should be carriedout to confirm baseline values. Serum or plasma calcium jenna urement (mass/volume)Ordered By: Justine Hess on 02-21-2023 Calcium [Mass/Vol] 9.1 mg/dL 8.5-10.1 [facility] Serum or plasma creatinine m easurement (mass/volume)Ordered By: Justineneno Hess 02-21-2023 Creatinine [Mass/Vol] 1.02 mg/dL 0.70-1.30 [facility] Comment on above: The validity of the calculated GFR & GFRAA in patients over 70 years has not been determined. Clinical correlation is essential. Serum or plasma urea nitroge n measurement (mass/volume)Ordered By: Justine Hess on 02-21-2023 Urea nitrogen [Mass/Vol] 16 mg/dL 7-18 [facility] Serum or plasma uric acid me asurement (mass/volume)Ordered By: Justine Hess on 02-21-2023 Urate [Mass/Vol] 8.1 mg/dL 3.5-7.2 [facility] Comment on above: The drugs N-Acetylcy steine and Metamizole may falsely depress this assay. Thin prep Papanicolaou smear with manual screeningOrdered By: Justine Hess on 02-21-2023 Thin prep Papanicolaou smear with manual screening 3.5 g/dL 3.2-5.0 [facility] Thin prep Papanicolaou smear with manual screening 31 U/L 15-37 [facility] Thin prep Papanicolaou smear with manual screening 4 5-15 [facility] Uric Acidon 02-21-2023 URIC 8.1 mg/dL High 3.5-7.2 [facility] Comment on above: Result Comment: The drugs N-Acetylcysteine and Metamizole may falsely depress this assay. Performed By: #### L 100.0100, L501.1400, L501.9910, L500.4100, L500.4050 #### [facility] [address] [place] [address]. [place], [place], [id number] Very low density lipoprotein (VLDL) cholesterol measurementOrdered By: Justine Hess on 02-21-2023 Cholesterol in VLDL Calc [Moles/Vol] 14 mg/dL 5-40 [facility] Encounters Encounter Date Encounter Type Care Provider Facility Start: 09-26-2023 End: 09-26-2023 ambulatory Margy Bimal [employer] MANAGER Facility:[facility] Start: 09-26-2023 End: 09-26-2023 ambulatory Margy Bimal [employer]ER RO[employer] MANAGER Facility:[facility] Start: 05-16-2023 ambulatory Feliciano Shepherd lity:[facility] Start: 04-04-2023 End: 04-04-2023 ambulatory Justine Hess Facility:[facility] Start: 03-07-2023 End: 03-07-2023 ambulatory Justine Hess Facility:[facility] Start: 03-07-2023 End: 03-07-2023 ambulatory Margy Bimal [employer] RO[employer] MANAGER Facility:[facility] Start: 02-24-2023 Encounter for genera l adult medical examination without abnormal findings Justine Hess [facility] Start: 02-21-2023 End: 02-21-2023 ambulatory [facility] Work Phone: Start: 02-21-2023 End: 02-21-2023 Patient encounter procedure [facility] Start: 02-21-2023 End: 02-21-[address] [facility] Facility:[facility] Payers Date Payer Category Payer Self-pay [id number] 2023 Unknown [id number] 2008 Unknown [facility] [id number] Unknown [id number] 2.16.8 [id number] Unknown [id number] 2.16.8 [id number] Unknown [id number] 2.16.8 [id number] Unknown [id number] 2.16.8 [id number] Unknown [id number] 2.16.8 [id number] Unknown [id number] 2.16.8 [id number] Unknown [id number] 2.16.8 [id number] Social History Date Type Detail Facility [facility]: [facility] Start: 1960 Sex Assigned At Male [facility] Evaluation note Note Date & Type Note Facility Evaluation note No assessment information availa ble [facility] Work Phone: Summary Purpose Family History No Family History Records Found Advance Directives No Advanced Directives Records Found Additional Source Comments Care Teams (unrecognized sec tion and content) Team Status: Active Member Role Status Dates No Primary Care Physician Family Provider Active ELENITA Viera Primary Care Provider Active Team Status: Inactive Member Role Status Dates ELENITA Viera Primary Care Provide r, Attending Provider, Referring Provider Active Goals (unrecognized section and content) Goals may be documented in a n alternate section (unrecognized sect ion and content) No Status Records Found INFORMATION SOURCE (unrecogn ized section and content) DATE CREATED AUTHOR 11/11/2023 [facility] FOR RECORDS PERTAINING TO PATIENTS WHO ARE OR HAVE BEEN ENROLLED IN A CHEMICAL DEPENDENCY/SUBSTANCEABUSE PROGRAM, SOME INFORMATION MAY BE OMITTED. This clinical summary was aggregated from multiple sources. Caution should be exercised in using it in the provision of clinical care. This summary normalizes information from multiple sources, and as a consequence, information in this document may materially change the coding, format and clinical context of patient data. In addition, data may be omitted in some cases. CLINICAL DECISIONS SHOULD BE BASED ON THE PRIMARY CLINICAL RECORDS. [facility]. provides no warranty or guarantee of the accuracy or completeness of information in this document.
== END | disposition home or self-care (01) ==
PROVIDERS: PCP Nurse Practitioner Family; Referring Provider Nurse Practitioner Family; Visit Provider Nurse Practitioner Family
DX: R06.02 Shortness of breath (principal); R07.9 Chest pain, unspecified; Z12.5 Encounter for screening for malignant neoplasm of prostate; I10 Essential (primary) hypertension; E78.5 Hyperlipidemia, unspecified
CPT/HCPCS: 36415; 71046; 80053; 80061; 83880; 84153; 85025; 85652; 86140; G0103

== ENCOUNTER → 2024-10-29 | Outpatient (CLI) | payer MEDICARE, SELFPAY ==
--- NOTE | 2024-10-29 14:45 | CT_ITS ---
PROCEDURE: LOW DOSE CT LUNG SCREENING 10/29/2024 REASON FOR EXAM: LUNG CANCER SCREENING Patient has smoked 1 pack per day for 40 years. TECHNIQUE: Procedure Code: [id number] Modality: CT Procedure: LOW DOSE CT LUNG SCREENING Coronal and Sagittal reconstruction series were provided. One or more dose reduction techniques were used (e.g., Automated exposure control, adjustment of the mA and/or kV according to patient size, use of iterative reconstruction technique). REFERENCE LINK: [employer] Lung-RADS RADIATION DOSE SUMMARY: CTDlvol: 4.02 mGy DLP: 144.96 mGycm COMPARISON: Prior study dated September 26, 2023. FINDINGS: PULMONARY NODULES: (Only nodules >3mm are reported) Nodules described below are on series 1 unless otherwise specified. Pulmonary Nodules: Stable 4.5 mm noncalcified nodule in the peripheral lateral aspect of the left lower lobe as seen on axial image number 203 Hardware:None Lymph Nodes:Small benign-appearing mediastinal lymph nodes. Heart and Vasculature:The heart is nonenlarged.Atherosclerotic calcifications of the thoracic aorta. Thoracic aorta and pulmonary arteries have normal contours; noncontrast technique limits evaluation. Coronary Artery Calcifications: Present Lungs and Airways: Mild emphysematous changes are present. Pleura:No pleural effusion Upper Abdomen:Unremarkable Bones:Degenerative changes of the thoracic spine. CT/Low Dose CT Lung Screening IMPRESSION: Stable examination. Coronary artery calcification (CAC) is is present Lung-RADS Category: 2 BENIGN (BASED ON IMAGING FEATURES OR INDOLENT BEHAVIOR). RECOMMEND 12-MONTH SCREENING LDCT. Other Significant Findings: Reading Location: [place] [id number]
== END | disposition home or self-care (01) ==
LOC: CT 14:42
PROVIDERS: PCP Nurse Practitioner Family; Referring Provider Nurse Practitioner Family; Visit Provider Nurse Practitioner Family
DX: Z87.891 Personal history of nicotine dependence (principal); Z12.2 Encounter for screening for malignant neoplasm of respiratory organs
CPT/HCPCS: 71271